=== PATIENT | female | born 1970 | race Caucasian/White ===

== ENCOUNTER 2018-10-31 09:37 | Emergency (ER) | payer OTHER ==
[~2018-10-31] VITALS: Ht 162.6 cm; Wt 72.6 kg
[2018-10-31 09:47] VITALS: BP 107/67
[2018-10-31] MEDS ORDERED: HYDROCODONE/APAP 5/325MG 1 EACH TABLET ONE (09:57)
[2018-10-31] MEDS ORDERED: IBUPROFEN 600 MG TABLET PO ONE ×2 (09:57→10:00)
[2018-10-31] MEDS ORDERED: HYDROCODONE/APAP 5/325MG 1 EACH TABLET PO ONE (10:00)
== END 2018-10-31 11:15 | disposition home or self-care (01) ==
LOC: ER 09:39
DX: S90.31XA Contusion of right foot, initial encounter (principal); V49.9XXA Car occupant (driver) (passenger) injured in unspecified traffic accident, initial encounter; Y93.89 Activity, other specified; Y92.410 Unspecified street and highway as the place of occurrence of the external cause; Y99.8 Other external cause status
CPT/HCPCS: 73630-TC